=== PATIENT | male | born 1945 | race Caucasian/White ===

== ENCOUNTER → 2018-01-11 | Outpatient (CLI) | payer MEDICARE, OTHER ==
[~2018-01-11] MED LIST: HYDROCODONE-ACET5 ML PO; LEVAQUIN250 MG PO; LORAZEPAM INJ 2 MG/ML VIAL ONE; SPIRONOLACTONE25 MG PO; XARELTO20 MG PO
--- NOTE | 2018-01-11 13:35 | Diagnostic Imaging Report ---
History: Headaches Comparison studies: None Technique: Sagittal T2; axial DWI, FLAIR, MPGR, T1, Coronal FLAIR. Intravenous contrast: None Findings: Scalp: Normal in signal . No masses . Bone marrow: Normal in signal intensity. Extra-axial: No masses, no fluid collections. Brain sulci: Appropriate for age. Ventricles: Normal in size . No hydrocephalus . Parenchyma: Few small T2/FLAIR hyperintensities of the periventricular and the white matter No masses, hemorrhage, acute or chronic vascular insults. Suprasellar region: No abnormalities. Craniocervical junction: No abnormalities. Patent foramen magnum. No Chiari one malformation. Vessels: Normal flow-voids in the arteries and sinuses. Bilateral cataract surgery changes. Mucosal thickening at the bilateral ethmoid sinuses. IMPRESSION: 1. No acute abnormalities. 2. Mild chronic microvascular ischemic changes of the white matter Signed by: DR Aaron Cagle M.D. on 01/11/2018 1:32 PM
== END ==
LOC: MRI 01-05 07:40
PROVIDERS: ATTEND Family Medicine
DX: G44.52 New daily persistent headache (NDPH) (principal)
CPT/HCPCS: 70551; J2060